=== PATIENT | female | born 1975 | race Caucasian/White ===

== ENCOUNTER 2016-04-14 09:41 | Emergency (ER) | payer OTHER ==
[~2016-04-14] VITALS: Ht 167.6 cm; Wt 130.5 kg
[~2016-04-14 09:41] MED LIST: AMOX500T PO; HYDR-3498 PO; LANT3I SC; LEVO750T8 PO; SODI1000 IRR; SSD1C20 TOP
[2016-04-14 10:02] VITALS: Ht 167.6 cm; Wt 130.5 kg
[2016-04-14] MEDS ORDERED: CEFTRIAXONE 1 GM INJ IM ONE (11:30)
[2016-04-14] MEDS ORDERED: CEPH-443 PO (12:05)
[2016-04-14] MEDS ORDERED: BACTDS PO (12:05)
[2016-04-14] MEDS ORDERED: ACET500C5 PO (12:05)
[2016-04-14 12:28] VITALS: BP 142/85; PULSE 75; RESP 19; TEMP 98.2
--- NOTE | 2016-04-14 12:29 | ERD ---
ER Documentation Chief Complaint Date/Time DATE: 04/14/16 TIME: 12:14 Chief Complaint abscess to the right upper leg-noticed about 4 days ago HPI 41-year-old female with a history of diabetes, panniculitis and recurrent abscesses, morbid obesity presents the ED complaining of a right inner thigh abscess that started 1 week ago. States that she has had chronic panniculitis wounds on her abdomen that were worsened after she pulled up her pants and started to abrade the left side of her wound. Denies any fever, chills, abdominal pain, chest pain, shortness of breath, nausea, vomiting. ROS All systems reviewed and are negative except as per history of present illness. Medications Home Meds Active Scripts Acetaminophen* (Tylophen*) 500 Mg Capsule, 1 CAP PO Q6H Y for PAIN AND OR ELEVATED TEMP, #20 CAP Prov:ROSE WORRELL PA-C 04/14/16 Cephalexin* (Keflex*) 500 Mg Capsule, 500 MG PO QID for 7 Days, CAP Prov:ROSE WORRELL PA-C 04/14/16 Sulfamethoxazole-Trimethoprim* (Bactrim* DS) 800-160 Mg Tab, 1 TAB PO BID for 7 Days, TAB Prov:ROSE WORRELL PA-C 04/14/16 Amoxicillin* (Amoxil*) 500 Mg Tablet, 500 MG PO TID for 7 Days, TAB Prov:SUNG PASCAL V. COMPLIANCE MANAGER 06/13/15 Levofloxacin* (Levofloxacin*) 750 Mg Tablet, 750 MG PO DAILY for 7 Days, TAB Prov:SUNG PASCAL V. COMPLIANCE MANAGER 06/13/15 Sodium Chloride Irrig Solution (Sodium Chloride) 1 Applic Irrig.soln, 1 APPLIC IRR BID for 30 Days Prov:SUNG PASCAL V. COMPLIANCE MANAGER 06/13/15 Silver Sulfadiazine (THERMAZENE 1% 25 GM) 1 Applic Cr, 1 APPLIC TOP BID for 30 Days Prov:SUNG PASCAL V. COMPLIANCE MANAGER 06/13/15 Reported Medications Hydrocodone Bit/Acetaminophen (Anexsia 5-325 Mg Tablet) 1 Tab Tablet, 1 TAB PO Q4H Y for PAIN LEVEL 8-10, TAB 06/07/15 Insulin Glargine* (Lantus*) 100 Unit/Ml Soln, 15 UNIT SC QHS, EA 03/12/15 Allergies Allergies: Coded Allergies: vancomycin (Verified Allergy, Severe, KIDNEY SHUTDOWN, 04/14/16) PATIENT STATED HER KIDNEY ALMOST SHUTDOWN WHEN SHE HAD VANCO LAST HOSPITALIZATION. PMhx/Soc History of Surgery: Yes (abcess) Anesthesia Reaction: No Hx Neurological Disorder: No Hx Respiratory Disorders: No Hx Cardiac Disorders: No Hx Psychiatric Problems: No Hx Miscellaneous Medical Probl: Yes (DM) Hx Alcohol Use: No Hx Substance Use: No Hx Tobacco Use: No Smoking Status: Never smoker Physical Exam Vitals Vital Signs Date Time Temp Pulse Resp B/P Pulse Ox O2 Delivery O2 Flow Rate FiO2 04/14/16 12:28 98.2 75 19 142/85 100 Room Air 04/14/16 10:02 97.9 76 18 151/71 97 Physical Exam Const: [id number], well-nourished. In no acute distress. Head: Atraumatic, normocephalic Eyes: Normal Conjunctiva without injection. No purulent discharge. PERRLA. EOMI ENT: Normal external ear. Ear canal without erythema. Tympanic membrane pearly garcia without effusion or bulging. Nasal canal clear with normal turbinates. Moist oropharynx without tonsillar exudates. Non-erythematous pharynx. Uvula midline. No drooling. No trismus. Neck: No cervical midline tenderness. Full range of motion. No meningismus. No cervical lymphadenopathy. No JVD. Resp: Clear to auscultation bilaterally. No wheezing, rhonchi, rales, or crackles. No accessory muscle use. No retractions. Cardio: Regular rate and rhythm. No murmurs, rubs or gallops. Abd: Soft, non tender, non distended. Normal bowel sounds. No palpable masses. No rebound tenderness. No guarding. Negative McBurney's Point. Negative Salomon's Sign. Skin: Normal skin turgor. No petechiae or rashes Back: No midline tenderness. No CVA tenderness. Ext: No cyanosis, or edema. Distal pulses intact bilaterally. Neur: Awake and alert. Normal gait. Normal coordination. Psych: Normal Mood and Affect Results 24 hrs Laboratory Tests Test 04/14/16 11:49 Bedside Glucose 102mg/dL Current Medications Medications (Trade) Dose Ordered Sig/Lata Route PRN Reason Start Time Stop Time Status Last Admin Dose Admin Ceftriaxone Sodium (Rocephin) 1 gm ONCE ONCE IM 04/14/16 11:30 04/14/16 11:31 DC 04/14/16 11:33 Procedures/MDM 41-year-old female with a past medical history of panic colitis, diabetes, recurrent abscesses, morbid obesity presents to the ED complaining of a right abscess noted on her leg that started 1 week ago as well as an abraded panniculitis wound to left side of her abdomen. Patient is afebrile nontoxic appearing. Patient has normal vital signs. This time my supervising physician , Dr. Bauer also evaluated patient at this time. States that patient can be managed on outpatient basis with antibiotics. Patient was treated here with ceftriaxone 1 g IM. Keflex and Bactrim will be prescribed for patient. Tylenol 6 prescribed for pain. Instructed patient to follow-up with her primary care physician and the wound care center in 2 days for a wound check. Low suspicion for allergic contact dermatitis, urticaria, insect bites, cutaneous candidiasis, eczema, scabies, tinea infection, erythema multiforme, psoriasis, SJS, TEN, sepsis, cellulitis, necrotizing fascitis, or other emergent conditions. A differential diagnosis considered includes but is not limited to gastritis, GERD, peptic ulcer disease, cholecystitis, choledocholithiasis, cholangitis, pancreatitis, appendicitis, bowel obstruction, ileus, volvulus, nephrolithiasis , pyelonephritis, hepatitis, perforated viscus, diverticulitis, abdominal hernia , acute abdomen, mesenteric ischemia or other emergent conditions. Discharge medications: Tylenol, Keflex Follow up with primary care physician in 1-2 days for referral to car builder. Instructed patient to return to the ED sooner for any worsening symptoms. Patient's questions were answered. Patient understood and agreed with discharge plan. Patient discharged stable. Departure Diagnosis: Primary Impression: Abscess Additional Impression: History of panniculitis Condition: Stable Patient Instructions: Wound Care, Abscess, Antiobiotic Treatment Only Referrals: COMMUNITY CLINICS YOU HAVE RECEIVED A MEDICAL SCREENING EXAM AND THE RESULTS INDICATE THAT YOU DO NOT HAVE A CONDITION THAT REQUIRES URGENT TREATMENT IN THE EMERGENCY DEPARTMENT. FURTHER EVALUATION AND TREATMENT OF YOUR CONDITION CAN WAIT UNTIL YOU ARE SEEN IN YOUR DOCTORS OFFICE WITHIN THE NEXT 1-2 DAYS. IT IS YOUR RESPONSIBILITY TO MAKE AN APPOINTMENT FOR FOLOW-UP CARE. IF YOU HAVE A PRIMARY DOCTOR --you should call your primary doctor and schedule an appointment IF YOU DO NOT HAVE A PRIMARY DOCTOR YOU CAN CALL OUR PHYSICIAN REFERRAL HOTLINE AT IF YOU CAN NOT AFFORD TO SEE A PHYSICIAN YOU CAN CHOSE FROM THE FOLLOWING [facility] [address] [facility] [address] [facility] [address] [facility] [address] [facility] [address] [facility] [address] [facility]. [facility] YOU HAVE RECEIVED A MEDICAL SCREENING EXAM AND THE RESULTS INDICATE THAT YOU DO NOT HAVE A CONDITION THAT REQUIRES URGENT TREATMENT IN THE EMERGENCY DEPARTMENT. FURTHER EVALUATION AND TREATMENT OF YOUR CONDITION CAN WAIT UNTIL YOU ARE SEEN IN YOUR DOCTORS OFFICE WITHIN THE NEXT 1-2 DAYS. IT IS YOUR RESPONSIBILITY TO MAKE AN APPOINTMENT FOR FOLOW-UP CARE. IF YOU HAVE A PRIMARY DOCTOR --you should call your primary doctor and schedule and appointment IF YOU DO NOT HAVE A PRIMARY DOCTOR YOU CAN CALL OUR PHYSICIAN REFERRAL HOTLINE AT . IF YOU CAN NOT AFFORD TO SEE A PHYSICIAN YOU CAN CHOSE FROM THE FOLLOWING [facility]: [facility] [address] [place] [address] [facility] [address] [place] [address] [facility] [address] [place] [address] [facility] URGENT CARE/SPECIALTIES Additional Instructions: SEE YOUR FAMILY DOCTOR IN 2 DAYS FOR A WOUND CHECK. FOLLOW UP WITH YOUR PRIMARY CARE PHYSICIAN TOMORROW.Return to this facility if you are not improving as expected. ROSE WORRELL PA-C Apr 14, 2016 12:29
== END 2016-04-14 12:32 | disposition home or self-care (01) ==
LOC: FTE 09:41
DX: L02.415 Cutaneous abscess of right lower limb (principal); E11.9 Type 2 diabetes mellitus without complications; Z87.39 Personal history of other diseases of the musculoskeletal system and connective tissue; Z79.4 Long term (current) use of insulin
CPT/HCPCS: 82962; 96372; J0696; Z7502

== ENCOUNTER 2017-10-15 22:41 | Emergency (ER) | END 2017-10-16 01:55 | disposition home or self-care (01) ==

== ENCOUNTER 2018-04-24 15:18 | Emergency (ER) | payer OTHER ==
[~2018-04-24] VITALS: Ht 175.3 cm; Wt 122.5 kg
[~2018-04-24 15:18] MED LIST changes: +ACET500C5 PO; +BACTDS PO; +CEPH-443 PO; +IBUP-1542 PO
[2018-04-24 15:24] VITALS: BP 159/92; PULSE 70; RESP 20; Ht 175.3 cm; Wt 122.5 kg
[2018-04-24] MEDS ORDERED: LIDOCAINE 1% (MDV) 20 ML INJ SC ONE (16:30)
[2018-04-24] MEDS ORDERED: DIPHTH/TET/ACEL PERTUSS (ADULT) 0.5 ML VIAL IM* ONE (16:30)
[2018-04-24] MEDS ORDERED: ACETAMINOPHEN 325 MG TAB PO ONE (16:30)
[2018-04-24] MEDS ORDERED: CEPH-443 PO (16:45)
[2018-04-24] MEDS ORDERED: IBUP-1542 PO (16:45)
--- NOTE | 2018-04-24 16:49 | ERD ---
ER Documentation Chief Complaint Chief Complaint Complains of toe pain and swelling x 2 days HPI This 43-year-old female presents with pain in her left big toenail with some bruising at the base for the last 2 days. History significant for running a [employer] race 2 days ago. She denies any acute trauma or additional inciting events. She has no bleeding or discharge. She is worried because she has a history of diabetes. Denies any previous infections or related complications of diabetes . ROS All systems reviewed and are negative except as per history of present illness. Medications Home Meds Active Scripts Cephalexin* (Keflex*) 500 Mg Capsule, 500 MG PO QID for 7 Days, CAP Prov:JACQUELYN MONTELONGO MD 04/24/18 Ibuprofen* (Motrin*) 600 Mg Tab, 600 MG PO Q6, #15 TAB Prov:JACQUELYN MONTELONGO MD 04/24/18 Ibuprofen* (Motrin*) 600 Mg Tab, 600 MG PO Q6, #30 TAB Prov:FARHAN CANDELARIO 10/16/17 Cephalexin* (Keflex*) 500 Mg Capsule, 500 MG PO BID for 7 Days, CAP Prov:MARIAM CANDELARIONA C 10/16/17 Acetaminophen* (Tylophen*) 500 Mg Capsule, 1 CAP PO Q6H PRN for PAIN AND OR ELEVATED TEMP, #20 CAP Prov:ROSE WORRELL PA-C 04/14/16 Cephalexin* (Keflex*) 500 Mg Capsule, 500 MG PO QID for 7 Days, CAP Prov:ROSE WORRELL PA-C 04/14/16 Sulfamethoxazole-Trimethoprim* (Bactrim* DS) 800-160 Mg Tab, 1 TAB PO BID for 7 Days, TAB Prov:ROSE WORRELL PA-C 04/14/16 Amoxicillin* (Amoxil*) 500 Mg Tablet, 500 MG PO TID for 7 Days, TAB Prov:PASCALSUNG V. BOSS MINER 06/13/15 Levofloxacin* (Levofloxacin*) 750 Mg Tablet, 750 MG PO DAILY for 7 Days, TAB Prov:SUNG PASCAL V. BOSS MINER 06/13/15 Sodium Chloride Irrig Solution (Sodium Chloride) 1 Applic Irrig.soln, 1 APPLIC IRR BID for 30 Days Prov:SUNG PASCAL V. BOSS MINER 06/13/15 Silver Sulfadiazine (THERMAZENE 1% 25 GM) 1 Applic Cr, 1 APPLIC TOP BID for 30 Days Prov:SUNG PASCAL V. BOSS MINER 06/13/15 Reported Medications Hydrocodone Bit/Acetaminophen (Anexsia 5-325 Mg Tablet) 1 Tab Tablet, 1 TAB PO Q4H PRN for PAIN LEVEL 8-10, TAB 06/07/15 Insulin Glargine* (Lantus*) 100 Unit/Ml Soln, 15 UNIT SC QHS, EA 03/12/15 Allergies Allergies: Coded Allergies: vancomycin (Verified Allergy, Severe, KIDNEY SHUTDOWN, 04/14/16) PATIENT STATED HER KIDNEY ALMOST SHUTDOWN WHEN SHE HAD VANCO LAST HOSPITALIZATION. PMhx/Soc History of Surgery: Yes (abcess) Anesthesia Reaction: No (r-inner thigh abscess) Hx Neurological Disorder: No Hx Respiratory Disorders: No Hx Cardiac Disorders: No Hx Psychiatric Problems: No Hx Miscellaneous Medical Probl: Yes (DM) Hx Alcohol Use: No Hx Substance Use: No Hx Tobacco Use: No Smoking Status: Never smoker Physical Exam Vitals Vital Signs Date Temp Pulse Resp B/P (MAP) Pulse Ox O2 O2 Flow FiO2 Time Delivery Rate 04/24/18 98.7 70 20 159/92 97 15:24 (114) Physical Exam Const: No acute distress Head: Atraumatic Eyes: Normal Conjunctiva ENT: Normal External Ears, Nose and Mouth. Neck: Full range of motion. No meningismus. Resp: Clear to auscultation bilaterally Cardio: Regular rate and rhythm, no murmurs Abd: Soft, non tender, non distended. Normal bowel sounds Skin: No petechiae or rashes Back: No midline or flank tenderness Ext: No cyanosis, or edema. Left big toenail is tender with movement. There is some bruising at the base. There is no fluctuance, erythema and Refill is less than 2 seconds. There is no ulcerations. Neur: Awake and alert Psych: Normal Mood and Affect Results 24 hrs Current Medications Medications Dose Sig/Alta Start Time Status Last (Trade) Ordered Route PRN Stop Time Admin Dose Reason Admin Diphtheria/ 0.5 ml ONCE ONCE 04/24/18 DC 04/24/18 Tetanus/Acell IM* 16:30 16:21 Pertussis 04/24/18 16:31 (Adacel) Lidocaine 20 ml ONCE ONCE 04/24/18 DC 04/24/18 (Xylocaine SC 16:30 16:22 1% (Mdv) 20 04/24/18 16:31 ml) 650 mg ONCE ONCE 04/24/18 DC 04/24/18 Acetaminophen PO 16:30 16:21 (Tylenol 04/24/18 16:31 Tab) Procedures/MDM Patient presents with signs and symptoms of left big nail partial avulsion likely from running a endurance race 2 days ago. She has no signs of infection, ischemia, tenosynovitis or mechanism to suggest fracture, dislocation. Patient is electing for nail removal. Or seizure note-left big toe was prepped with Betadine. 3 cc lidocaine was used to perform a digital block. Anesthesia was obtained. Nail was removed using clamps. Patient tolerated procedure well and the wound was dressed. No evidence of nailbed injury. Patient is worried about infection and will be treated with Keflex prophylactically, ibuprofen, ductions for wound care and return precautions for worsening redness, fevers, new worsening symptoms. The patient was stable with no new complaints during the ER course. Clinically, there is no current evidence to suggest meningitis, sepsis, acute abdomen, pneumonia, stroke, acute coronary syndrome, pulmonary embolism, aortic dissection or any other emergent condition appearing to require further evaluation or hospitalization. Patient counseled r egarding my diagnostic impression and care plan. Prior to discharge all questions answered. Pt agrees with treatment plan and understands strict return precautions. Pt is instructed to follow up with primary care provider within 24- 48 hours. Precautionary instructions provided including instructions to return to the ER if not improving or for any worsening or changing symptoms or c oncerns. Departure Diagnosis: Primary Impression: Injury of toe Encounter type: initial encounter Laterality: left Qualified Codes: S99.922A - Unspecified injury of left foot, initial encounter Condition: Stable Patient Instructions: Nail Removal Additional Instructions: Recheck for worsening redness, swelling, fevers, new or worsening symptoms. JACQUELYN MONTELONGO MD Apr 24, 2018 16:49
== END 2018-04-24 17:09 | disposition home or self-care (01) ==
LOC: FTE 15:18
DX: S90.212A Contusion of left great toe with damage to nail, initial encounter (principal); E11.9 Type 2 diabetes mellitus without complications; X58.XXXA Exposure to other specified factors, initial encounter; Y92.9 Unspecified place or not applicable; Z23 Encounter for immunization; Z79.4 Long term (current) use of insulin
CPT/HCPCS: 11750; 90471; 90715; Z7502; Z7610